=== PATIENT | female | born 1980 | race Caucasian/White ===

== ENCOUNTER 2024-12-31 19:02 | Emergency (ER) | payer OTHER ==
[2024-12-31 21:56] VITALS: TEMP 97.9
--- NOTE | 2024-12-31 22:19 | ERPHSYRPT ---
- History of Present Illness Historian: patient Exam Limitations: no limitations Patient Subjective Stated Complaint: vomiting and diarrhea since midnight Triage Nursing Assessment: Pt ambulated into ER without diff. Pt c/o abd pain, vomiting and diarrhea since midnight. Pt has hx of diverticulitis. Abd lg, obese with active bs x4 quad, tender on palpation. Pt describes pain as achy, cramping and throbbing. Pt had part of her colon removed in September from the diverticulitis. Physician History: Patient's had symptoms for about 24 hours. She has frequent vomiting and diarrhea. She also has some abdominal pain. She says her abdominal pain is mainly from her stomach musculature from throwing up. She does have a lower abdominal pain. It is all in the upper musculature.Nothing makes symptoms better eating makes it worse. She has a history of diverticulitis and has had a small amount of her colon removed. She has not had fever or chills. Allergies/Adverse Reactions: No Known Drug Allergies Allergy (Verified 12/31/24 22:07) Home Medications: Empagliflozin [Jardiance] 25 mg PO DAILY 12/31/24 [History] Metformin HCl 500 mg [Glucophage 500 MG] 1,000 mg PO BID 12/31/24 [History] lisinopriL [Lisinopril] 1 tab PO DAILY 12/31/24 [History] Hx Tetanus, Diphtheria Vaccination/Date Given: (unknown) Hx Influenza Vaccination/Date Given: No Hx Pneumococcal Vaccination/Date Given: No Travel Risk - International Travel Have you traveled outside of the country in past 3 weeks: No - Emerging Infectious Disease Are you exhibiting symptoms associated with any current EIDs: Yes Symptoms: Abdominal Pain, Diarrhea, Vomitting - Review of Systems Constitutional: No Symptoms Eyes: No Symptoms Respiratory: No Symptoms Abdominal/Gastrointestinal: Nausea, Vomiting, Diarrhea Genitourinary Symptoms: No Symptoms Musculoskeletal: No Symptoms Skin: No Symptoms All Other Systems: Reviewed and Negative - Past Medical History Pertinent Past Medical History: Yes Neurological History: No Pertinent History ENT History: No Pertinent History Cardiac History: Hypertension Respiratory History: No Pertinent History Endocrine Medical History: Diabetes Type II Musculoskeletal History: No Pertinent History GI Medical History: Diverticulitis, GERD History: No Pertinent History Psycho-Social History: No Pertinent History Female Reproductive Disorders: No Pertinent History - Past Surgical History Past Surgical History: Yes Neuro Surgical History: No Pertinent History Cardiac: No Pertinent History Respiratory: No Pertinent History Gastrointestinal: Other Genitourinary: No Pertinent History Musculoskeletal: No Pertinent History Female Surgical History: Hysterectomy, Section, Other Other Surgical History: left oophorectomy during in 2006, part of colon removed in Sep, 2024 due to diverticulitis - Female History Hx Now: No - Social History Smoking Status: Never smoker Exposure to second hand smoke: Yes Drug Use: marijuana - Social Determinants of Health Will the patient participate in the screening: Yes Do you worry about a steady place to live?: No Do you have any problems with any of the following?: No known problems In the past 12 months,have you had to go without utilities?: No Transportation Issues: No Has anyone in your support network made you feel unsafe?: No Have you or anyone in your house had to go w/o enough food: No - Nursing Vital Signs Nursing Vital Signs: Initial Vital Signs Temperature 97.9 F 12/31/24 21:55 Pulse Rate 60 12/31/24 21:55 Respiratory Rate 18 12/31/24 21:55 Blood Pressure 153/65 12/31/24 21:55 O2 Sat by Pulse Oximetry 99 12/31/24 21:55 Pain Scale Pain Intensity 0 - Physical Exam General Appearance: no apparent distress Respiratory Exam: normal breath sounds, chest tenderness Cardiovascular Exam: regular rate/rhythm, normal heart sounds Gastrointestinal/Abdomen Exam: soft, normal bowel sounds, tenderness, No distention, No mass, No guarding Back Exam: normal inspection Neurologic Exam: alert, oriented x 3, cooperative Skin Exam: normal color, warm, dry SpO2: 98 Ordered Tests: Active Orders 24 hr Category Date Time Status ABDOMEN AND PELVIS W CONTRAST [CT] Stat Exams 12/31/24 22:14 Completed CBC W DIFF Stat Lab 12/31/24 22:20 Completed CMP Stat Lab 12/31/24 22:20 Completed CULTURE,URINE Stat Lab 12/31/24 23:19 Received Manual Differential NC Stat Lab 12/31/24 22:20 Completed UA W/RFX UR CULTURE Stat Lab 12/31/24 23:19 Completed Medication Summary Discontinued Medications Generic Name Dose Route Start Last Admin Trade Name Freq PRN Reason Stop Dose Admin Hydromorphone HCl 1 mg 12/31/24 23:20 12/31/24 23:31 Hydromorphone 1 Mg/1ml Inj IV 12/31/24 23:21 1 mg STAT ONE Administration Hydromorphone HCl Confirm 12/31/24 23:25 Hydromorphone 1 Mg/1ml Inj Administered 12/31/24 23:26 Dose 1 mg .ROUTE .STK-MED ONE Ondansetron HCl 4 mg 12/31/24 23:20 12/31/24 23:28 Ondansetron Hcl 4 Mg/2 Ml Vial IV 12/31/24 23:21 4 mg STAT ONE Administration Ondansetron HCl Confirm 12/31/24 23:25 Ondansetron Hcl 4 Mg/2 Ml Vial Administered 12/31/24 23:26 Dose 4 mg .ROUTE .STK-MED ONE Lab/Rad Data: Laboratory Result Diagrams 12/31/24 22:20 12/31/24 22:20 Laboratory Results 12/31/24 12/31/24 12/31/24 Range/Units 23:19 22:20 22:20 WBC 13.7 H (3.98-10.04) x10^3/uL RBC 5.47 H (3.93-5.22) x10^6/uL Hgb 14.7 (11.2-15.7) g/dL Hct 44.3 (34.1-44.9) % MCV 81.0 (79.4-94.8) fL MCH 26.9 (25.6-32.2) pg MCHC 33.2 (32.2-35.5) g/dL RDW 13.8 (11.7-14.4) % Plt Count 260 (182-369) x10^3/uL MPV 10.5 (9.4-12.3) fL Segmented Neutrophils 92 H (34.0-71.1) % Lymphocytes (Manual) 5 L (19.3-51.7) % Monocytes (Manual) 3 L (4.7-12.5) % Platelet Estimate NORMAL (NORMAL) RBC Morphology NORMAL Sodium 144 (135-145) mmol/L Potassium 3.8 (3.5-5.1) mmol/L Chloride 103 (98-107) mmol/L Carbon Dioxide 21 L (22-30) mmol/L Anion Gap 24.0 H (5-15) MEQ/L BUN 17 (7-17) mg/dL Creatinine 0.67 (0.52-1.04) mg/dL Estimated GFR 109.8 ML/MIN Glucose 206 H (74-106) mg/dL Calcium 9.7 (8.4-10.2) mg/dL Total Bilirubin 0.40 (0.2-1.3) mg/dL AST 24 (14-36) U/L ALT 21 (0-35) U/L Alkaline Phosphatase 105 (38-126) U/L Serum Total Protein 8.5 H (6.3-8.2) g/dL Albumin 5.0 (3.5-5.0) g/dL Urine Color Yellow (Yellow) Urine Appearance Clear (Clear) Urine pH 5.5 (4.6-8.0) Ur Specific [place] >=1.030 A (1.005-1.030) Urine Protein 100 A (Negative) Urine Glucose (UA) >=1000 A (Negative) mg/dL Urine Ketones 80 A (Negative) Urine Blood Trace (Negative) Urine Nitrite Negative (Negative) Urine Bilirubin Negative (Negative) Urine Urobilinogen 1.0 A (0.2) mg/dL Ur Leukocyte Esterase Negative (Negative) U Hyaline Cast (Auto) NONE SEEN (0-2) /LPF Urine Microscopic RBC 3-5 (0-5) /HPF Urine Microscopic WBC 0-2 (0-5) /HPF Ur Epithelial Cells None Seen (None Seen) /HPF Urine Bacteria None Seen (None Seen) /HPF Urine Culture Reflexed YES (NO) - Progress Progress: improved Progress Note: Patient stable throughout stay. Her labs all look good. Her CT did not show any diverticulitis. Think she just has a stomach virus. If she did have a history of diverticulitis I probably would have gotten the CT. It seems like clear-cut Gastroenteritis.Only discharged to home in stable condition with Zofran.On the differential was gastroenteritis, cholecystitis, diverticulitis, 01/01/25 01:15 Medical Desision Making - Risk of complications Minimal Risk: Minimal risk of morbidity - Departure Departure Disposition: Home Clinical Impression: Nausea vomiting and diarrhea Condition: Stable Critical Care Time: No Referrals: DOCTOR,NO FAMILY [NON-STAFF PHY W/O PRIVILEGES, UNKNOWN] - Follow up/PCP as directed Instructions: Viral gastroenteritis in adults
[2024-12-31 22:29] LABS: Hematocrit 44.3 % (34.1-44.9); Hemoglobin 14.7 g/dL (11.2-15.7); Mean Corpuscular Hemoglobin 26.9 pg (25.6-32.2); Mean Corpuscular Hgb Concent. 33.2 g/dL (32.2-35.5); Mean Platelet Volume 10.5 fL (9.4-12.3); Platelet Count 260 x10^3/uL (182-369); Red Blood Count 5.47 x10^6/uL (3.93-5.22); Red Cell Distribution Width 13.8 % (11.7-14.4); White Blood Count 13.7 x10^3/uL (3.98-10.04)
[2024-12-31 23:12] LABS: BILIRUBIN,TOTAL 0.4 mg/dL (0.2-1.3); Calcium 9.7 mg/dL (8.4-10.2); Creatinine 1 0.67 mg/dL (0.52-1.04); EST GLOMERULAR FILTRATION RATE 109.8 ML/MIN; Potassium 3.8 mmol/L (3.5-5.1); Total Protein 8.5 g/dL (6.3-8.2)
[2024-12-31] MEDS ORDERED: Zofran 4 MG/2 ML VIAL ONE (23:25)
[2024-12-31] MEDS ORDERED: Hydromorphone 1 mg/ml Injection ONE (23:25)
[2024-12-31] MEDS: Zofran 4 MG/2 ML VIAL IV ONE (23:28)
[2024-12-31 23:29] LABS: Appearance Clear (Clear); Bacteria None Seen /HPF (None Seen); Bilirubin Negative (Negative); Blood Trace (Negative); Epithelial Cells None Seen /HPF (None Seen); Glucose, Urine >=1000 mg/dL (Negative); Hyaline Casts NONE SEEN /LPF (0-2); Ketones 80 (Negative); Leukocyte Esterase Negative (Negative); Nitrite Negative (Negative); Ph 5.5 (4.6-8.0); Protein,Urine Dip 100 (Negative); Specific Gravity >=1.030 (1.005-1.030); WBC 0-2 /HPF (0-5)
[2024-12-31] MEDS: Hydromorphone 1 mg/ml Injection IV ONE (23:31)
[2025-01-01 00:20] LABS: Lymphocytes 5 % (19.3-51.7); Monocyte 3 % (4.7-12.5); Neutrophils 92 % (34.0-71.1); Platelet Estimate NORMAL (NORMAL); Total Cells Counted 100
--- NOTE | 2025-01-01 01:12 | XRAY ---
CLINICAL HISTORY: abd pain COMPARISON: None. TECHNIQUE: CT of the abdomen and pelvis was performed with IV contrast 80 ml of Isovue was administered, with the following protocol: axial images, and reconstructed coronal and sagittal images. One of the following dose reduction techniques was utilized for this exam: Automated exposure control, adjustment of the mA and/or kV according to patient size, and use of iterative reconstruction. FINDINGS: Sections of the Lower thorax show no significant abnormality. Abdomen: Liver: 18.5 cm in size. No focal lesions, cysts, or masses were identified. Gallbladder and Biliary System: The gallbladder is normal in size and shape. No wall thickening, pericholecystic fluid, or gallstones were identified. Pancreas: Pancreatic head, body, and tail are visualized and appear normal in size and density. No pancreatic masses or calcifications were noted. Spleen: Normal in size, shape, and density. No splenic lesions or masses were identified. Kidneys and Adrenal Glands: Both kidneys are normal in size, shape, and position. No renal calculi or hydronephrosis. Adrenal glands are unremarkable. Pelvis: Urinary Bladder: Minimally distended. Post-hysterectomy status. No adnexal lesions. Peritoneal and Retroperitoneal Structures: No free fluid or abnormal fluid collections were identified within the abdomen or pelvis. Few enlarged iliac group nodes along the left pelvic wall, the largest measuring 7 mm in short axis diameter. Bowel: Postsurgical changes at the rectosigmoid colon. Rectosigmoid colon is underdistended, the exact wall thickness cannot be commented upon. The entire visualized colon is underdistended with the suggestion of low attenuation in the submucosa. Few scattered colonic diverticulae. The appendix is not well delineated. Recommended correlation with prior surgical details. Bones and Soft Tissues: Mild degenerative changes in the lumbar spine with grade I minimal anterolisthesis of L4 over L 5 by a distance of approximately 2.8 mm. Post-surgical changes in the anterior abdominal wall. IMPRESSION: 1. Postsurgical changes at the rectosigmoid colon. Rectosigmoid colon is underdistended, the exact wall thickness cannot be commented upon. 2. The entire visualized colon is underdistended with the suggestion of low attenuation in the submucosa, which may denote mild inflammatory changes. Advised clinical correlation. 3. Few iliac group nodes along the left pelvic wall, largest measuring 7 mm in short axis diameter. 4. Mild hepatomegaly Electronically Signed by: Margarita Vargas MD. (01/01/2025 01:08:21 EDT)
[2025-01-01 01:18] VITALS: O2SAT 98
[2025-01-01 01:19] VITALS: BP 111/62; PULSE 90; RESP 20
== END 2025-01-01 01:39 | disposition home or self-care (01) ==
LOC: ED 19:02
DX: R11.2 Nausea with vomiting, unspecified (principal); R19.7 Diarrhea, unspecified; R10.9 Unspecified abdominal pain; I10 Essential (primary) hypertension; E11.9 Type 2 diabetes mellitus without complications; Z79.84 Long term (current) use of oral hypoglycemic drugs; Z79.899 Other long term (current) drug therapy
CPT/HCPCS: 36415; 74177; 80053; 81001; 85025; 87086; 96374; 96375; 99284; 99285; J1171; J2405